=== PATIENT | female | born 1985 | race Caucasian/White ===

== ENCOUNTER 2018-07-06 00:35 | Inpatient (IN) | payer OTHER ==
[2018-07-06] MEDS ORDERED: AMPICILLIN - 2 GM in SODIUM CHLORIDE 100 ML IVPB SCH (01:15)
[2018-07-06] MEDS ORDERED: AMPICILLIN SODIUM 2 GM VIAL ONE (01:19)
[2018-07-06] MEDS ORDERED: DEXTROSE 5%-LACTATED RINGERS 1,000 ML IV SCH ×2 (01:30→07:45)
[2018-07-06 01:36] LABS: BASO % 0.3 % (0-2.0); EOS % 0.9 % (0-4.5); HEMATOCRIT 36.3 % (32.4-45.2); HEMOGLOBIN 12.6 GM/dL (10.7-15.3); LYMPH % 22.6 % (8-40); MCH 31.5 pg (25.7-33.7); MCHC 34.6 g/dl (32.0-36.0); MEAN PLT VOLUME 8.3 fl (7.5-11.1); MONO % 8.9 % (3.8-10.2); NEUT % 67.3 % (42.8-82.8); PLATELET COUNT 231 K/MM3 (134-434); RBC 3.99 M/mm3 (3.60-5.2); RDW 13.5 % (11.6-15.6); WHITE BLOOD COUNT 7.2 K/mm3 (4.0-10.0)
[2018-07-06] MEDS ORDERED: AMPICILLIN - 2 GM in SODIUM CHLORIDE 100 ML IVPB ONE (01:43)
[2018-07-06 01:52] VITALS: BMI 32.7
[2018-07-06 01:58] LABS: INR 0.95 (0.83-1.09); PROTHROMBIN TIME (PATIENT) 11.2 SEC (9.7-13.0)
[2018-07-06 02:00] LABS: ANION GAP 10 MMOL/L (8-16); BLOOD UREA NITROGEN 8 mg/dL (7-18); CALCIUM 8.4 mg/dL (8.5-10.1); CHLORIDE 108 mmol/L (98-107); CO2 19 mmol/L (21-32); CREATININE 0.5 mg/dL (0.55-1.3); GLUCOSE,RANDOM 100 mg/dL (74-106); POTASSIUM 3.6 mmol/L (3.5-5.1); SODIUM 137 mmol/L (136-145)
[2018-07-06] MEDS ORDERED: PROMETHAZINE HCL 25 MG/1 ML VIAL ONE (03:46)
[2018-07-06] MEDS ORDERED: BUTORPHANOL TARTRATE 2 MG/ML VIAL ONE (03:46)
[2018-07-06] MEDS ORDERED: PROMETHAZINE HCL 25 MG/1 ML VIAL IVPB ONE (04:00)
[2018-07-06] MEDS ORDERED: BUTORPHANOL TARTRATE 2 MG/ML VIAL IVPB ONE (04:00)
[2018-07-06] MEDS ORDERED: AMPICILLIN SODIUM 1 GM VIAL ONE ×5 (05:12→21:29)
[2018-07-06] MEDS: AMPICILLIN - 1 GM in SODIUM CHLORIDE 100 ML IVPB SCH ×5 (05:17→21:30)
--- NOTE | 2018-07-06 07:51 | HP ---
Past Medical History - Admission Chief Complaint: Rupture of membrane History of Present Illness: 33 yo , @ 41 weeks gestation, EDC 06/29/18, presents c/o rupture of membrane. Upon admission there was evidence of gross pooling. History Source: Patient Limitations to Obtaining History: No Limitations - Past Medical History ...: 1 ...Para: 0 ...Term: 0 ...: 0 ...Spon : 0 ...Induced : 0 ...Multiple Gestation: 0 ...LMP: 09/21/17 ... Weeks Gestation by Dates: 41.1 ...EDC by Dates: 06/28/18 ...EDC by Sono: 06/29/18 - Past Surgical History Past Surgical History: Yes: None Hx Myomectomy: No Hx Transabdominal Cerclage: No - Smoking History Smoking history: Never smoked - Alcohol/Substance Use Hx Alcohol Use: No - Social History History of Recent Travel: No Home Medications - Allergies Allergies/Adverse Reactions: Allergies Allergy/AdvReac Type Severity Reaction Status Date / Time No Known Allergies Allergy Verified 06/30/18 18:31 - Home Medications Home Medications: Ambulatory Orders Prenat 115/Iron Fum/Folic/Dss [ 19 Tablet] 1 tab PO DAILY 06/30/18 Family Disease History - Family Disease History Family History: Unremarkable Review of Systems - Review of Systems Constitutional: reports: No Symptoms Eyes: reports: No Symptoms HENT: reports: No Symptoms Neck: reports: No Symptoms Cardiovascular: reports: No Symptoms Respiratory: reports: No Symptoms Gastrointestinal: reports: No Symptoms Genitourinary: reports: Pain Breasts: reports: No Symptoms Reported Musculoskeletal: reports: No Symptoms Integumentary: reports: No Symptoms Neurological: reports: No Symptoms Endocrine: reports: No Symptoms Hematology/Lymphatic: reports: No Symptoms Psychiatric: reports: No Symptoms Pain Intensity: 3 Physical Exam - Maternity Vital Signs: Vital Signs Temperature 98.5 F 07/06/18 07:00 Pulse Rate 62 07/06/18 07:00 Respiratory Rate 20 07/06/18 07:00 Blood Pressure 129/69 07/06/18 07:00 O2 Sat by Pulse Oximetry (%) Constitutional: Yes: Well Nourished Eyes: Yes: Conjunctiva Clear HENT: Yes: Atraumatic Neck: Yes: Supple Cardiovascular: Yes: Regular Rate and Rhythm Lungs: Clear to auscultation - Abdominal Exam/OB Number of Fetuses: Single Presentation: Vertex - Vaginal Exam/OB Vaginal Bleediing: No Dilatation (cm): 1-2 Amniotic Membrane Status: Ruptured Amniotic Fluid: Yes: Clear Station: -2 - Physical Exam Musculoskeletal: Yes: WNL ...Motor Strength: WNL Psychiatric: Yes: Alert, Oriented - Labs Lab Results: CBC, BMP 07/06/18 01:20 07/06/18 00:56 Problem List - Problems (1) Spontaneous rupture of amniotic membranes Code(s): VGM7580 - Assessment/Plan SROM @ 41 weeks gestation Admit to L&D Analgesia as needed Anticipate
[2018-07-06] MEDS ORDERED: OXYTOCIN 30 UNITS in 0.9% NS 30 UNIT/500 ML INFUS.BAG IVPB SCH (08:15)
[2018-07-06] MEDS ORDERED: FENTANYL/BUPIVACAINE/NS/PF - PCEA - 50 ML DISP.SYRIN EP ONE (11:46)
[2018-07-06] MEDS ORDERED: ELECTROLYTE-148 SOLN 1,000 ML IV SCH (12:00)
--- NOTE | 2018-07-06 13:32 | PN ---
Ante-Partal Exam - Subjective Subjective: PT comfortable after anesthesia placed spinal. Vital Signs: Vital Signs Temperature 98.5 F 07/06/18 12:00 Pulse Rate 57 L 07/06/18 12:50 Respiratory Rate 20 07/06/18 12:50 Blood Pressure 95/50 L 07/06/18 12:50 O2 Sat by Pulse Oximetry (%) Bleeding: Yes Bleeding Description: Mild Headache: No Visual changes: No Right upper quadrant pain: No - Contractions Contractions: Yes Regularity: Regular Intensity: Mod/Strong - Exam during Labor Variability: Moderate Category: I Monitor Accelerations: Present Monitor Decelerations: None Exam: Vaginal Dilatation (cm): 6 Effacement (%): 90 Amniotic Membrane Status: Ruptured Station: 0 - Intrapartum Hemorrhage Risk Medium Risk Factors: None High Risk Factors: None Risk Score: 0 Risk Level: Low Risk - Assessment/Plan Assessment/Plan: Continue pitocin
[2018-07-06] MEDS ORDERED: BUPIVACAINE HCL/PF 0.25% (2.5MG/ML) 10 ML VIAL ONE (15:34)
[2018-07-06] MEDS ORDERED: LIDOCAINE HCL 1% PRESERVATIVE FREE - 30ML VIAL ONE (20:08)
[2018-07-06] MEDS ORDERED: OXYTOCIN 20 UNITS in 0.9% NS 20 UNIT/1,000 ML INFUS.BAG IV ONE (20:08)
--- NOTE | 2018-07-06 20:49 | PN ---
Ante-Partal Exam - Subjective Subjective: Continue pitocin anticipate Vital Signs: Vital Signs Temperature 99.6 F 07/06/18 20:00 Pulse Rate 68 07/06/18 20:00 Respiratory Rate 18 07/06/18 20:00 Blood Pressure 127/76 07/06/18 20:00 O2 Sat by Pulse Oximetry (%)
--- NOTE | 2018-07-07 00:40 | PN ---
Ante-Partal Exam - Subjective Subjective: PT feeling pressure and contractions Vital Signs: Vital Signs Temperature 98.5 F 07/06/18 23:00 Pulse Rate 56 L 07/06/18 23:00 Respiratory Rate 18 07/06/18 23:00 Blood Pressure 129/71 07/06/18 23:00 O2 Sat by Pulse Oximetry (%) Bleeding: Yes Bleeding Description: Mild Headache: No Visual changes: No Right upper quadrant pain: No Pain (scale 1-10): 8 - Contractions Contractions: Yes Regularity: Regular Intensity: Strong - Exam during Labor Heart Rate: 150 Variability: Moderate Category: II Monitor Accelerations: Present Monitor Decelerations: Variable (nonrecurrent) Exam: Vaginal Dilatation (cm): 8.5 Effacement (%): 90 Amniotic Membrane Status: Ruptured Presentation: Vertex Station: 0 - Intrapartum Hemorrhage Risk Medium Risk Factors: None High Risk Factors: None Risk Score: 0 Risk Level: Low Risk - Assessment/Plan Assessment/Plan: 33 y/o with SIUP at 41 weeks, PROM, labor induction FHTS overall cat 1, occasional variable decelerations/nonrecurrent will continue to monitor continue active management
[2018-07-07] MEDS ORDERED: AMPICILLIN SODIUM 1 GM VIAL ONE (01:18)
[2018-07-07] MEDS: AMPICILLIN - 1 GM in SODIUM CHLORIDE 100 ML IVPB SCH ×2 (01:20→05:54)
[2018-07-07] MEDS ORDERED: BISACODYL 10 MG SUPP.RECT RC PRN (04:42)
[2018-07-07] MEDS ORDERED: WITCH HAZEL 50% (TUCKS) 40 PAD/JAR PAD TP PRN (04:42)
[2018-07-07] MEDS ORDERED: BENZOCAINE 28 GM HEMORRHOIDAL OINTMENT TP PRN (04:42)
[2018-07-07] MEDS ORDERED: BENZOCAINE 20% 57 GM BOTTLE TP PRN (04:42)
[2018-07-07] MEDS ORDERED: METHYLERGONOVINE MALEATE 0.2 MG/1 ML AMP IM PRN (04:42)
--- NOTE | 2018-07-07 04:42 | PN ---
Delivery - Delivery Vaginal Delivery: No Problems Type of Anesthesia: Epidural (intrathecal placement of epidural, bolused throughout the day) Episiotomy/Laceration: 1st degree (and right vaginal sidewall) EBL (cc): 300 Delivery, Single - Stages of Labor Date of Delivery: 07/07/18 Time of Delivery: 04:07 Date Placenta Delivered: 07/07/18 Time Placenta Delivered: 04:15 Placenta: Yes: Spontaneous - Condition of Infant Housing Management Representative/Cash Applications Clerk Present: No Infant Gender: Male Position: Right, OA - 5 Minutes Total Score: 9 1 Minute Total Score: 8 - [place] Feeding Plan Initial Plan: Exclusive throughout hospitalization Remarks - Remarks Remarks: Uncomplicated of baby boy from DHIRAJ position across 1st degree laceration loose nuchal noted upon delivery meconium noted after delivery of baby head anterior shoulder (left) delivered with ease along with remainder of cord clamped and cut 1st degree repaired with 2-0 chromic right vaginal sidewall laceration repaired with 3-0 vicryl suture excellent hemostasis and cosmetic result sponge and needle count correct mom stable baby to well baby nursery
[2018-07-07] MEDS ORDERED: OXYTOCIN 20 UNITS in 0.9% NS 20 UNIT/1,000 ML INFUS.BAG IV SCH (04:45)
[2018-07-07] MEDS ORDERED: ACETAMINOPHEN 325 MG TABLET (FP) ONE (04:48)
[2018-07-07] MEDS ORDERED: IBUPROFEN 600 MG TABLET (FP) PO ONE (04:48)
[2018-07-07] MEDS: IBUPROFEN 600 MG TABLET (FP) PO PRN ×3 (04:50→16:15)
[2018-07-07] MEDS: ACETAMINOPHEN 325 MG TABLET (FP) PO PRN ×3 (04:50→16:17)
[2018-07-07] MEDS: FERROUS SO4 325 MG TABLET (FP) PO SCH ×3 (07:32→16:58)
[2018-07-07] MEDS: PRENATAL VITAMINS W/ FOLIC ACID TABLET (FP) PO SCH (10:46)
--- NOTE | 2018-07-07 12:16 | PN ---
Progress Note (short form) - Note Progress Note: Anesthesiologist note Called to evaluate the patient regarding back pain. S/P vaginal delivery at 4:00 am. Pat had unintentional intra thecal catheter, while attempted epidural placement. Catheter was kept in place and delivered boluses intermittently. Today patient c/o backache from lumbar up to the neck, specially when she tries to turn her head to the left side. Also tingling at both wrists and ankles. No headache. No N/V. No blurred vision. Have been ambulating today without any problems. PE: Sitting in the bed. CN grossly intact. Dysesthesia at bilat ankles and wrists. Strength LE and UE bilat 5/5 . Pain down on her back, Cervical to lumbar spine, on neck flexion. L4-5 TTP, at catheter insertion site, no erythema or swelling. Right side posterior shoulder TTP. VSS, afebrile. A/P: Possible dural irritation causing the pain down her back on neck flexion. No neurologic deficit related to spinal is observed. The wrist and ankle tingling could be related to swelling and also position during labor. Right shoulder pain seems to be of muscular origin. Reassuring the patient. Should observe for any sign of infection at the catheter insertion site. Follow any worsening of symptoms. Will follow.
[2018-07-07] MEDS: SENNOSIDES/DOCUSATE COMBO (SENNA PLUS) TABLET (UD) PO PRN (22:51)
[2018-07-08] MEDS: ACETAMINOPHEN 325 MG TABLET (FP) PO PRN ×2 (02:25→08:10)
[2018-07-08] MEDS: IBUPROFEN 600 MG TABLET (FP) PO PRN ×2 (02:25→08:11)
--- NOTE | 2018-07-08 07:08 | PN ---
Post Progress Note - Subjective Subjective: Pt seen/examined and doing well. Denies HARPER, no back pain. VB/lochia rubra stable and decreasing. Tolerating diet, ambulating, voiding, passing flatus. Pain controlled. Type of Delivery: Vital Signs: Vital Signs Temperature 98.3 F 07/07/18 21:59 Pulse Rate 76 07/07/18 21:59 Respiratory Rate 18 07/07/18 21:59 Blood Pressure 113/69 07/07/18 21:59 O2 Sat by Pulse Oximetry (%) 98 07/07/18 06:15 Uterus: Yes: Fundus Firm Abdomen/GI: Yes: Abdomen soft Lochia: Yes: Rubra Extremities: No: Edema Perineum: Yes: Laceration (in tact) Activity: Ambulating - Labs Labs: CBC WBC 7.2 K/mm3 (4.0-10.0) 07/06/18 01:20 RBC 3.99 M/mm3 (3.60-5.2) 07/06/18 01:20 Hgb 12.6 GM/dL (10.7-15.3) 07/06/18 01:20 Hct 36.3 % (32.4-45.2) 07/06/18 01:20 MCV 91.0 fl (80-96) 07/06/18 01:20 MCH 31.5 pg (25.7-33.7) 07/06/18 01:20 MCHC 34.6 g/dl (32.0-36.0) 07/06/18 01:20 RDW 13.5 % (11.6-15.6) 07/06/18 01:20 Plt Count 231 K/MM3 (134-434) 07/06/18 01:20 MPV 8.3 fl (7.5-11.1) 07/06/18 01:20 Absolute Neuts (auto) 4.8 K/mm3 (1.5-8.0) 07/06/18 01:20 Neutrophils % 67.3 % (42.8-82.8) 07/06/18 01:20 Lymphocytes % 22.6 % (8-40) 07/06/18 01:20 Monocytes % 8.9 % (3.8-10.2) 07/06/18 01:20 Eosinophils % 0.9 % (0-4.5) 07/06/18 01:20 Basophils % 0.3 % (0-2.0) 07/06/18 01:20 Nucleated RBC % 0 % (0-0) 07/06/18 01:20 Problem List - Problems (1) Vaginal delivery Code(s): O80 - ENCOUNTER FOR FULL-TERM UNCOMPLICATED DELIVERY Assessment/Plan 33 y/o PPD#1 s/p normal Regular diet PO pain meds await CBC routine care
--- NOTE | 2018-07-08 08:06 | DS ---
Physical Exam-KARATE INSTRUCTOR Vital Signs: Vital Signs Temperature 98.3 F 07/07/18 21:59 Pulse Rate 76 07/07/18 21:59 Respiratory Rate 18 07/07/18 21:59 Blood Pressure 113/69 07/07/18 21:59 O2 Sat by Pulse Oximetry (%) 98 07/07/18 06:15 Constitutional: Yes: Well Nourished, No Distress, Calm Eyes: Yes: Conjunctiva Clear HENT: Yes: Atraumatic Neck: Yes: Supple, Trachea Midline Cardiovascular: Yes: Regular Rate and Rhythm Respiratory: Yes: CTA Bilaterally Gastrointestinal: Yes: Normal Bowel Sounds, Soft ....Post : Yes: Uterus firm, Uterus non-tender Neurological: Yes: Alert, Oriented Psychiatric: Yes: Alert, Oriented Labs: CBC, BMP 07/06/18 01:20 07/06/18 00:56 Delivery - Delivery Vaginal Delivery: No Problems Type of Anesthesia: Epidural, Spinal Episiotomy/Laceration: 1st degree EBL (cc): 300 Delivery, Single - Stages of Labor Date 1st Stage Initiatied: 07/05/18 Time 1st Stage Initiated: 04:00 Date 2nd Stage Initiated: 07/07/18 Time 2nd Stage Initiated: 03:15 Date of Delivery: 07/07/18 Time of Delivery: 04:07 Time Placenta Delivered: 04:15 Placenta: Yes: Spontaneous - Condition of Vmware Consultant/Rail Car Driver Present: [place]: Chemo [place] Gender: Male Weight: 7 lb Position: Right, OA Total Hours ROM (Hrs/Mins): 55hr/15mins - 5 Minutes Total Score: 9 1 Minute Total Score: 8 - [place] Feeding Plan Initial Plan: Exclusive throughout hospitalization Discharge Summary Reason For Visit: LABOR Current Active Problems Spontaneous rupture of amniotic membranes (Acute) Vaginal delivery (Acute) Vaginal delivery (Acute) Procedures: Principal: Normal Hospital Course: Pt admitted in labor on 07/06/17, underwent uncomplicated on cigarette machine filler . Pt had post recovery complicated by spinal headache which required a blood patch by anesthesia in 07/08. Procedure went well and pt was discharged home on post day 2. Condition: Good - Instructions Diet, Activity, Other Instructions: Physical activity Resume your normal everyday activity as tolerated no heavy lifting or exercise until seen by your surgeon. You may walk unlimited amounts and climb stairs. You may resume driving the car when you feel safe and comfortable behind the wheel. No sexual activity as instructed for 6 weeks. Diet There are no dietary restrictions. Eat healthy, high-fiber foods. Drink 6 to 8 glasses of liquid each day. This will assist in keeping your bowels regular. Pain management You may take Tylenol or Ibuprofen (for example, Motrin, Advil etc.) as needed for pain. Call MD for any of the following: Severe pain not relieved by medication Fever of 101 or higher Excessive bleeding or drainage on dressing Inability to urinate Referrals: Radha Polanco DO [Staff Physician] - 1 Month (6 weeks) Disposition: HOME - Home Medications Comprehensive Discharge Medication List: Ambulatory Orders Prenat 115/Iron Fum/Folic/Dss [ 19 Tablet] 1 tab PO DAILY 06/30/18
[2018-07-08] MEDS: FERROUS SO4 325 MG TABLET (FP) PO SCH ×3 (08:12→18:03)
[2018-07-08 08:38] LABS: BASO % 0.4 % (0-2.0); EOS % 1.2 % (0-4.5); HEMATOCRIT 29.3 % (32.4-45.2); HEMOGLOBIN 10.1 GM/dL (10.7-15.3); LYMPH % 15.5 % (8-40); MCH 31.5 pg (25.7-33.7); MCHC 34.4 g/dl (32.0-36.0); MEAN CELL VOLUME 91.5 fl (80-96); MONO % 6.3 % (3.8-10.2); NEUT % 76.6 % (42.8-82.8); PLATELET COUNT 193 K/MM3 (134-434); WHITE BLOOD COUNT 12.9 K/mm3 (4.0-10.0)
--- NOTE | 2018-07-08 09:27 | PN ---
Progress Note (short form) - Note Progress Note: Anesthesia follow up S/P vaginal delivery, POD#2. The Back ache improved. Slight neck pain and occipital headache, 3-4/10. Helped by Motrin and Tylenol. No more tingling and numbness in wrists and ankles. Right shoulder pain improved. Ambulating. Tolerating po. VSS. Catheter insertion site clear, not TTP as yesterday. Right cervical paraspinal around C7 TTP and on neck flexion. A/P: Improved symptoms and pain. No neurologic deficits. Continue Motrin and Tylenol for the musculoskeletal pain. Reassuring. Will follow up if any worsening or new symptoms.
[2018-07-08] MEDS: PRENATAL VITAMINS W/ FOLIC ACID TABLET (FP) PO SCH (10:03)
--- NOTE | 2018-07-08 13:14 | PN ---
Progress Note (short form) - Note Progress Note: Anesthesia Called to evaluate post dural puncture headache. Pt c/o headache in occipital region improved with lying down but worse sitting up. Headache is consistent with the Post dural puncture headache. Other options including medication offered. pt consents to the epidural blood patch. In sterile fashion pt sat up L3-4 cleaned with betadine 3 times Local lidocaine injected 17 Tuohy needle introduced x 1 Epidural space identified with MICHELLE technique 20cc blood obtained by a nurse in sterile fashion from left AC Blood injected to the epidural space without resistence. Vital signs checked before and after. 134/94 71 99% Pt tolerated procedure well. Michael Blackwell MD
[2018-07-08] MEDS: SENNOSIDES/DOCUSATE COMBO (SENNA PLUS) TABLET (UD) PO PRN (21:05)
[2018-07-08] MEDS ORDERED: SENNOSIDES/DOCUSATE COMBO (SENNA PLUS) TABLET (UD) PO PRN (22:00)
[2018-07-09] MEDS: FERROUS SO4 325 MG TABLET (FP) PO SCH ×2 (08:00→12:02)
[2018-07-09 08:25] VITALS: BP 118/69; PULSE 73; TEMP 98.3
[2018-07-09] MEDS: PRENATAL VITAMINS W/ FOLIC ACID TABLET (FP) PO SCH (09:32)
--- NOTE | 2018-07-13 15:51 | PATH ---
Surgical Pathology Report Patient Name: TOYIN AGUILAR Med. Rec. #: [id number] /Age/Gender: 1985 (Age: 33) / F Account: [id number] [facility] OBS/SENIOR PAYROLL MANAGER Taken: 07/07/2018 Received: 07/09/2018 Reported: 07/13/2018 Physicians: Luis Brown M.D. Specimen(s) Received PLACENTA Clinical History , 41.1 weeks Final Diagnosis PLACENTA: THIRD TRIMESTER PLACENTA WITH PERIVILLOUS FIBRIN DEPOSITION, EDEMA OF THE SOFT TISSUE PLANE BETWEEN THE AMNION AND CHORION, AND PIGMENTED MACROPHAGES IN THE MEMBRANES. SEE NOTE. TRIVASCULAR CORD. Note: Findings are suggestive of meconium. Clinical correlation is recommended. Electronically Signed Iker Encinas M.D. Gross Description The specimen is received fresh labeled placenta and is a 425 gram, 18.0 x 15.5 x 2.8 cm. placenta with attached membranes and umbilical cord. The attached membranes are pearson green, meconium stained, translucent with focal opacities and insert marginally. The umbilical cord measures 47 cm. in length and averages 1.3 cm. in diameter. The cord inserts centrally. No true knots or strictures are identified. Cut surface of the umbilical cord reveals 3 vessels. The surface is cardenas green, meconium stained with minimal fibrin deposition and appropriate caliber vessels. The maternal surface is red-brown and intact. Sectioning reveals red-brown, spongy parenchyma. No lesions are identified. Manager [place] sections are submitted in three cassettes as follows: 1- membrane rolls and umbilical cord; 2-3- full thickness sections of placenta. /07/10/2018 [facility]07/10/2018
== END 2018-07-09 13:00 | disposition home or self-care (01) | DRG 560 ==
LOC: JLDR 00:35 → J3W 07-07 07:12
PROVIDERS: ADMIT Obstetrics & Gynecology; ATTEND Obstetrics & Gynecology
PROC: 0HQ9XZZ Repair Perineum Skin, External Approach (ICD-10-PCS; principal; 2018-07-07)
PROC: 10E0XZZ Delivery of Products of Conception, External Approach (ICD-10-PCS; 2018-07-07)
PROC: 3E0R3GC Introduction of Other Therapeutic Substance into Spinal Canal, Percutaneous Approach (ICD-10-PCS; 2018-07-08)
DX: O48.0 Post-term pregnancy (principal); O77.0 Labor and delivery complicated by meconium in amniotic fluid; O70.0 First degree perineal laceration during delivery; O74.5 Spinal and epidural anesthesia-induced headache during labor and delivery; M25.511 Pain in right shoulder; Z3A.40 40 weeks gestation of pregnancy; Z37.0 Single live birth
CPT/HCPCS: 36415; 59409; 80048; 85025; 85610; 85730; 86593; 86850; 86900; 86901; 87389; 88307-TC

== ENCOUNTER 2018-07-10 10:07 | Emergency (ER) | payer OTHER ==
[2018-07-10 10:12] VITALS: BMI 31.1
[2018-07-10] MEDS ORDERED: ACETAMINOPHEN 1000 MG/100 ML VIAL (NON FORMULARY) IVPB ONE (10:53)
[2018-07-10] MEDS ORDERED: SODIUM CHLORIDE 0.9% 1000 ML INFUS.BAG IV ONE (10:53)
[2018-07-10] MEDS ORDERED: CAFFEINE CITRATE 60 MG/3 ML VIAL IVPUSH ONE (10:53)
--- NOTE | 2018-07-10 11:17 | PDOC ---
History of Present Illness - General Chief Complaint: Headache Stated Complaint: Headache Time Seen by Provider: 07/10/18 10:36 - History of Present Illness Initial Comments: 07/10/18 11:17 33 years old presents to the ED with postdural headache Patient status post childbirth an epidural on Monday was complaining of post dural headache, blood patch on Monday felt better yesterday was asymptomatic today woke up fine when she stood up at the exact same headache which was maximal when standing alleviated by rest 10 out of 10 but relieved with lying supine Denies fever denies visual changes denies chest pain shortness of breath nausea vomiting diarrhea Past History - Past Medical History Allergies/Adverse Reactions: Allergies Allergy/AdvReac Type Severity Reaction Status Date / Time No Known Allergies Allergy Verified 07/10/18 16:43 Home Medications: Ambulatory Orders Prenat 115/Iron Fum/Folic/Dss [ 19 Tablet] 1 tab PO DAILY 06/30/18 Ibuprofen [Motrin -] 600 mg PO QID PRN #28 tablet 07/09/18 Asthma: No Cancer: No Cardiac Disorders: No COPD: No Diabetes: No HTN: No Seizures: No Thyroid Disease: No - Immunization History Immunization Up to Date: Yes - Suicide/Smoking/Psychosocial Hx Smoking History: Never smoked Hx Alcohol Use: No Drug/Substance Use Hx: No Hx Substance Use Treatment: No Review of Systems - Review of Systems Comments:: 07/10/18 11:17 ROS: A complete review of 10 out of 10 review of systems is taken and is negative apart from what is previously mentioned below and in the HPI. *Physical Exam - Vital Signs Last Vital Signs Temp Pulse Resp BP Pulse Ox 98.6 F 84 18 130/93 99 07/10/18 10:09 07/10/18 10:09 07/10/18 10:09 07/10/18 10:09 07/10/18 10:09 - Physical Exam Comments: 07/10/18 11:17 Vitals: Triage Vital signs reviewed General Appearance: no acute distress, well nourished well developed, Head: Atraumatic, Eyes: Pupils equal reactive round, extraocular movement intact Cardiac: Regular rate and rhythym, no murmurs, no rubs, no gallops, Lungs: Clear to auscultation bilateral, good air movement bilaterally, Abdomen: Soft, non distended, normal bowel sounds, non tender to palpation Extremities: Full range of motion to all extremities, no cyanosis, clubbing, or edema Skin: Warm and dry, no rashes or lesions, no rash, no petechiae Neuro: AOX3]; [Cranial Nerves 2-12 grossly intact], [Strength intact to all extremities], [Sensation intact to all extremities],[gait normal] Psych: [normal mood, normal affect] ED Treatment Course - LABORATORY CBC & Chemistry Diagram: 07/10/18 11:52 07/10/18 11:52 Medical Decision Making - Medical Decision Making 07/10/18 14:35 History examination consistent with postdural headache Status post fluids and IV Tylenol patient feels much better now able to annually comfortably around the emergency department On laboratory analysis to was a slight elevation in the patient's LFTs this was discussed with the patient's DIRECTOR VALIDATION Dr. Polanco Patient's repeat blood pressure is 146 systolic, urinalysis shows only trace protein 13 but moderate blood given her recent delivery these findings were discussed with patient's DIRECTOR VALIDATION Given a small concern for preeclampsia patient will be sent to labor and delivery for continued evaluation and further management. *DC/Admit/Observation/Transfer Diagnosis at time of Disposition: Headache Qualifiers: Headache type: unspecified Headache chronicity pattern: unspecified pattern Intractability: not intractable Qualified Code(s): R51 - Headache - Discharge Dispostion Disposition: HOME Condition at time of disposition: Stable - Referrals Referrals: Radha Polanco DO [Staff Physician] - (DISCHARGE HOME; CALL OFFICE TOMORROW MORNING FOR FOLLOW UP APPOINTMENT FOR BLOOD PRESSURE CHECK; IF HEADACHE, BLURRED VISION, EPIGASTRIC PAIN CALL MD SERVICE; ANY QUESTIONS/PROBLEMS CALL MD OR LABOR AREA [phone];) - Patient Instructions - Post Discharge Activity
[2018-07-10] MEDS ORDERED: ACETAMINOPHEN INJECTION 100 ML IVPB ONE (11:40)
[2018-07-10 12:00] LABS: BASO % 0.6 % (0-2.0); EOS % 1.6 % (0-4.5); HEMATOCRIT 34.6 % (32.4-45.2); HEMOGLOBIN 11.7 GM/dL (10.7-15.3); LYMPH % 13.8 % (8-40); MCH 30.9 pg (25.7-33.7); MCHC 33.9 g/dl (32.0-36.0); MEAN CELL VOLUME 91.1 fl (80-96); MEAN PLT VOLUME 7.2 fl (7.5-11.1); MONO % 5.4 % (3.8-10.2); NEUT % 78.6 % (42.8-82.8); PLATELET COUNT 287 K/MM3 (134-434); RDW 13.7 % (11.6-15.6); WHITE BLOOD COUNT 12.5 K/mm3 (4.0-10.0)
[2018-07-10 12:36] LABS: ALBUMIN 3.1 g/dl (3.4-5.0); ALK PHOS 274 U/L (45-117); ANION GAP 7 MMOL/L (8-16); BILIRUBIN,TOTAL 0.3 mg/dL (0.2-1); BLOOD UREA NITROGEN 6 mg/dL (7-18); CALCIUM 8.7 mg/dL (8.5-10.1); CHLORIDE 108 mmol/L (98-107); CO2 26 mmol/L (21-32); CREATININE 0.6 mg/dL (0.55-1.3); GLUCOSE,RANDOM 67 mg/dL (74-106); POTASSIUM 3.8 mmol/L (3.5-5.1); SGOT/AST 114 U/L (15-37); SGPT/ALT 92 U/L (13-61); SODIUM 141 mmol/L (136-145); TOT PROT 6.8 g/dl (6.4-8.2)
[2018-07-10 14:15] LABS: EPI CELLS 8.9 /HPF (0-5/HPF); PH,URINE 8.5 (5.0-8.0); URINE APPEARANCE CLEAR; URINE BACTERIA 9.1 /hpf (NEGATIVE); URINE BILIRUBIN NEGATIVE (NEGATIVE); URINE CASTS 12 /lpf (0-8); URINE COLOR ORANGE; URINE GLUCOSE (UA) NEGATIVE (NEGATIVE); URINE KETONE NEGATIVE (NEGATIVE); URINE LEUK ESTERASE 2+ (NEGATIVE); URINE NITRITE NEGATIVE (NEGATIVE); URINE PROTEIN TRACE (NEGATIVE); URINE RBC 259 /hpf (0-4); URINE UROBILINOGEN 0.2 mg/dL (0.2-1.0); URINE WBC 47 /hpf (0-5)
[2018-07-10 16:43] VITALS: TEMP 98.3
[2018-07-10 17:57] VITALS: BP 111/67; PULSE 74
--- NOTE | 2018-07-13 10:57 | EKG ---
Test Reason : Blood Pressure : / mmHG Vent. Rate : 070 BPM Atrial Rate : 070 BPM P-R Int : 120 ms QRS Dur : 080 ms QT Int : 380 ms P-R-T Axes : 042 083 043 degrees QTc Int : 410 ms NORMAL SINUS RHYTHM WITH SINUS ARRHYTHMIA NORMAL ECG NO PREVIOUS ECGS AVAILABLE Confirmed by JULI WITT MD ([id number]) on 07/13/2018 10:57:00 AM Referred By: Confirmed By:JULI WITT MD
== END 2018-07-10 18:10 | disposition home or self-care (01) ==
LOC: JER 10:07
PROC: 3E033NZ Introduction of Analgesics, Hypnotics, Sedatives into Peripheral Vein, Percutaneous Approach (ICD-10-PCS; principal; 2018-07-10)
DX: O90.89 Other complications of the puerperium, not elsewhere classified (principal); O89.4 Spinal and epidural anesthesia-induced headache during the puerperium
CPT/HCPCS: 36415; 80053; 81003; 85025; 93005; 93010; 96374; 99281-25; J0131; J7030

== ENCOUNTER 2020-03-29 23:40 | Emergency (ER) | payer OTHER ==
[2020-03-30 00:05] VITALS: BP 118/72; PULSE 70; TEMP 98.3; BMI 26.2
[2020-03-30] MEDS ORDERED: SODIUM CHLORIDE 500 ML IV STA (00:46)
[2020-03-30 01:38] LABS: BASO % 0.3 % (0-2.0); HEMATOCRIT 40.6 % (32.4-45.2); HEMOGLOBIN 13.8 GM/dL (10.7-15.3); LYMPH % 8.5 % (8-40); MCH 29.2 pg (25.7-33.7); MCHC 34.1 g/dl (32.0-36.0); MEAN CELL VOLUME 85.8 fl (80-96); MEAN PLT VOLUME 7.2 fl (7.5-11.1); MONO % 3.3 % (3.8-10.2); NEUT % 87.9 % (42.8-82.8); PLATELET COUNT 346 K/MM3 (134-434); RBC 4.74 M/mm3 (3.60-5.2); RDW 13.4 % (11.6-15.6); WHITE BLOOD COUNT 11.6 K/mm3 (4.0-10.0)
[2020-03-30] MEDS ORDERED: MECLIZINE HCL 25 MG TABLET (FP) PO ONE (01:40)
[2020-03-30] MEDS ORDERED: ONDANSETRON 4 MG/2 ML VIAL IVPUSH ONE (01:40)
[2020-03-30 01:56] LABS: POTASSIUM 3.9 mmol/L (3.5-5.1)
[2020-03-30 01:57] LABS: CALCIUM 8.7 mg/dL (8.5-10.1)
[2020-03-30 01:58] LABS: ALBUMIN 4.3 g/dl (3.4-5.0); BLOOD UREA NITROGEN 15.8 mg/dL (7-18)
[2020-03-30 02:01] LABS: CREATININE 0.8 mg/dL (0.55-1.3)
[2020-03-30 02:03] LABS: BILIRUBIN,TOTAL 0.3 mg/dL (0.2-1)
[2020-03-30 02:04] LABS: TOT PROT 8.1 g/dl (6.4-8.2)
[2020-03-30] MEDS ORDERED: MECLIZINE HCL 25 MG TABLET (FP) ONE (02:26)
[2020-03-30] MEDS ORDERED: ONDANSETRON 4 MG/2 ML VIAL ONE (02:26)
== END 2020-03-30 04:17 | disposition home or self-care (01) ==
LOC: JER 23:40
PROC: 3E033GC Introduction of Other Therapeutic Substance into Peripheral Vein, Percutaneous Approach (ICD-10-PCS; principal; 2020-03-29)
PROC: 3E0337Z Introduction of Electrolytic and Water Balance Substance into Peripheral Vein, Percutaneous Approach (ICD-10-PCS; 2020-03-29)
DX: H81.10 Benign paroxysmal vertigo, unspecified ear (principal)
CPT/HCPCS: 36415; 80053; 84443; 84703; 85025; 93005; 93010; 99284-25

== ENCOUNTER 2022-05-01 14:45 | Inpatient (IN) | payer OTHER ==
[2022-05-01 16:21] VITALS: BMI 34.0
[2022-05-01 16:30] LABS: INR 0.97 (0.83-1.09); PROTHROMBIN TIME (PATIENT) 11.3 SEC (9.7-13.0)
[2022-05-01 16:32] LABS: BASO % 0.4 % (0-2.0); EOS % 0.7 % (0-4.5); HEMATOCRIT 28.2 % (32.4-45.2); HEMOGLOBIN 9.3 GM/dL (10.7-15.3); LYMPH % 20.1 % (8-40); MCH 26.8 pg (25.7-33.7); MCHC 33.1 g/dl (32.0-36.0); MEAN CELL VOLUME 80.8 fl (80-96); MEAN PLT VOLUME 7.5 fl (7.5-11.1); MONO % 9.8 % (3.8-10.2); PLATELET COUNT 272 10^3/uL (134-434); RBC 3.49 M/mm3 (3.60-5.2); RDW 14.4 % (11.6-15.6); WHITE BLOOD COUNT 8.3 K/mm3 (4.0-10.0)
[2022-05-01] MEDS ORDERED: BUTORPHANOL TARTRATE 1 MG/ML VIAL IVPB PRN (16:32)
[2022-05-01] MEDS ORDERED: PROMETHAZINE HCL 25 MG/1 ML VIAL IVPB ONE (16:32)
[2022-05-01 16:33] LABS: ACTIVATED PTT 28.2 SECONDS (25.2-36.5)
[2022-05-01] MEDS ORDERED: AMPICILLIN - 2 GM in SODIUM CHLORIDE 100 ML IVPB ONE (16:34)
[2022-05-01] MEDS ORDERED: DINOPROSTONE 10 MG VAGINAL SUPPOSITORY VG ONE (16:36)
[2022-05-01 16:39] LABS: CALCIUM 8.7 mg/dL (8.5-10.1)
[2022-05-01 16:40] LABS: BLOOD UREA NITROGEN 10.2 mg/dL (7-18)
[2022-05-01 16:43] LABS: CREATININE 0.5 mg/dL (0.55-1.3)
[2022-05-02] MEDS ORDERED: OXYTOCIN 30 UNITS in 0.9% NS 30 UNIT/500 ML INFUS.BAG IVPB ONE (11:00)
[2022-05-02] MEDS: OXYTOCIN 30 UNITS in 0.9% NS 30 UNIT/500 ML INFUS.BAG IVPB SCH (11:40)
[2022-05-02] MEDS ORDERED: FENTANYL/BUPIVACAINE/NS/PF - PCEA - 50 ML DISP.SYRIN EP ONE (22:41)
[2022-05-02] MEDS ORDERED: NALOXONE HCL 0.4 MG/ML VIAL IVPUSH PRN (22:42)
[2022-05-02] MEDS ORDERED: FENTANYL CITRATE/PF 50 MCG/ML VIAL ONE (22:52)
[2022-05-02] MEDS: FENTANYL/BUPIVACAINE/NS/PF - PCEA - 50 ML DISP.SYRIN EP SCH (23:10)
[2022-05-03] MEDS ORDERED: FENTANYL/BUPIVACAINE/NS/PF - PCEA - 50 ML DISP.SYRIN EP ONE ×5 (03:53→20:05)
[2022-05-03] MEDS: AMPICILLIN - 1 GM in SODIUM CHLORIDE 100 ML IVPB SCH ×2 (07:24→07:25)
[2022-05-03] MEDS ORDERED: METHYLERGONOVINE MALEATE 0.2 MG/1 ML AMP IM PRN (08:04)
[2022-05-03] MEDS ORDERED: BISACODYL 10 MG SUPP.RECT RC PRN (08:04)
[2022-05-03] MEDS ORDERED: BENZOCAINE 20% 57 GM BOTTLE TP PRN (08:04)
[2022-05-03] MEDS ORDERED: ACETAMINOPHEN 325 MG TABLET (FP) PO PRN (08:04)
[2022-05-03] MEDS ORDERED: BENZOCAINE 28 GM HEMORRHOIDAL OINTMENT TP PRN (08:04)
[2022-05-03] MEDS ORDERED: oxyCODONE HCL 5 MG TABLET PO PRN (08:04)
[2022-05-03] MEDS ORDERED: WITCH HAZEL 50% (TUCKS) 40 PAD/JAR PAD TP PRN (08:04)
[2022-05-03] MEDS ORDERED: OXYTOCIN 20 UNITS in 0.9% NS 20 UNIT/1,000 ML INFUS.BAG IV SCH ×2 (08:15→22:00)
[2022-05-03] MEDS: FENTANYL/BUPIVACAINE/NS/PF - PCEA - 50 ML DISP.SYRIN EP SCH ×4 (08:38→20:10)
[2022-05-03] MEDS ORDERED: LIDOCAINE HCL 1% PRESERVATIVE FREE - 30ML VIAL ONE (11:05)
[2022-05-03] MEDS ORDERED: OXYTOCIN 20 UNITS in 0.9% NS 20 UNIT/1,000 ML INFUS.BAG IV ONE (11:05)
[2022-05-03] MEDS: PRENATAL VITAMINS W/ FOLIC ACID TABLET (FP) PO SCH (12:52)
[2022-05-03] MEDS: FERROUS SO4 325 MG TABLET (FP) PO SCH (12:52)
[2022-05-03] MEDS: ELECTROLYTE-148 SOLN 1,000 ML IV SCH ×2 (13:55→18:42)
[2022-05-03] MEDS ORDERED: BUPIVACAINE HCL/PF 0.25% (2.5MG/ML) 10 ML VIAL ONE (16:08)
[2022-05-03] MEDS ORDERED: FENTANYL CITRATE/PF 50 MCG/ML VIAL ONE ×2 (16:08→21:39)
[2022-05-03] MEDS ORDERED: OXYTOCIN 30 UNITS in 0.9% NS 30 UNIT/500 ML INFUS.BAG IVPB ONE ×2 (20:48→21:39)
[2022-05-03] MEDS: OXYTOCIN 30 UNITS in 0.9% NS 30 UNIT/500 ML INFUS.BAG IVPB SCH (20:50)
[2022-05-03] MEDS: CITRIC ACID/SODIUM CITRATE 30 ML UNIT-DOSE CUP PO ONE (21:20)
[2022-05-03] MEDS ORDERED: ONDANSETRON 4 MG/2 ML VIAL IVPUSH PRN (21:36)
[2022-05-03] MEDS ORDERED: LIDO 2%/EPI 1:200000 PRESRVFRE (20 ML SDVIAL) ONE (21:39)
[2022-05-03] MEDS ORDERED: ONDANSETRON 4 MG/2 ML VIAL ONE (21:42)
[2022-05-03] MEDS ORDERED: morphine SULFATE (PF) 1 MG/2 ML SYRINGE ONE (21:42)
[2022-05-03] MEDS ORDERED: ceFAZolin SODIUM 1 GM VIAL ONE (21:42)
[2022-05-03] MEDS ORDERED: DEXAMETHASONE SOD PHOSPHATE 4 MG/1 ML VIAL ONE (21:42)
[2022-05-03] MEDS ORDERED: ePHEDrine SULFATE 50 MG/1 ML AMPULE ONE (21:45)
[2022-05-03] MEDS ORDERED: KETOROLAC TROMETHAMINE 30 MG/1 ML VIAL ONE (22:23)
[2022-05-03 23:13] LABS: CORD BASE EXCESS -5.8 mmol/L (0-2); CORD HCO3 19.1 mmHg (20-29); CORD PCO2 36.3 mmHg (30-78); CORD pH 7.34 (7.14-7.44)
[2022-05-03 23:15] LABS: CORD BASE EXCESS -9.1 mmol/L (0-2); CORD HCO3 18.3 mmHg (20-29); CORD PCO2 44.5 mmHg (30-78); CORD pH 7.231 (7.14-7.44)
[2022-05-04] MEDS ORDERED: OXYTOCIN 20 UNITS in 0.9% NS 20 UNIT/1,000 ML INFUS.BAG IV ONE (00:57)
[2022-05-04] MEDS: ELECTROLYTE-148 SOLN 1,000 ML IV SCH (02:09)
[2022-05-04] MEDS: AMPICILLIN - 1 GM in SODIUM CHLORIDE 100 ML IVPB SCH (02:09)
[2022-05-04] MEDS: OXYTOCIN 30 UNITS in 0.9% NS 30 UNIT/500 ML INFUS.BAG IVPB SCH (02:11)
[2022-05-04] MEDS: FERROUS SO4 325 MG TABLET (FP) PO SCH ×3 (02:11→19:10)
[2022-05-04] MEDS: FENTANYL/BUPIVACAINE/NS/PF - PCEA - 50 ML DISP.SYRIN EP SCH (02:12)
[2022-05-04] MEDS: CITRIC ACID/SODIUM CITRATE 30 ML UNIT-DOSE CUP PO ONE (02:13)
[2022-05-04] MEDS: IBUPROFEN 800 MG/8 ML IJ IVPB PRN ×2 (06:07→22:19)
[2022-05-04] MEDS ORDERED: oxyCODONE HCL 5 MG TABLET PO PRN (08:04)
[2022-05-04 09:19] LABS: BASO % 0.2 % (0-2.0); HEMATOCRIT 25.6 % (32.4-45.2); HEMOGLOBIN 8.5 GM/dL (10.7-15.3); LYMPH % 5.9 % (8-40); MCH 26.7 pg (25.7-33.7); MCHC 33.3 g/dl (32.0-36.0); MEAN CELL VOLUME 80.2 fl (80-96); MEAN PLT VOLUME 8.1 fl (7.5-11.1); MONO % 4.4 % (3.8-10.2); NEUT % 89.5 % (42.8-82.8); PLATELET COUNT 245 10^3/uL (134-434); RBC 3.19 M/mm3 (3.60-5.2); RDW 14.3 % (11.6-15.6); WHITE BLOOD COUNT 17.8 K/mm3 (4.0-10.0)
[2022-05-04] MEDS: PRENATAL VITAMINS W/ FOLIC ACID TABLET (FP) PO SCH (09:55)
[2022-05-04] MEDS: IBUPROFEN 600 MG TABLET (FP) PO PRN ×2 (12:20→18:03)
[2022-05-04] MEDS: SIMETHICONE 80 MG TAB.CHEW (FP) PO PRN ×3 (12:20→22:19)
[2022-05-04] MEDS ORDERED: SENNOSIDES/DOCUSATE COMBO (SENNA PLUS) TABLET (UD) PO PRN (22:00)
[2022-05-05] MEDS: FERROUS SO4 325 MG TABLET (FP) PO SCH ×2 (08:12→17:53)
[2022-05-05] MEDS: SIMETHICONE 80 MG TAB.CHEW (FP) PO PRN ×2 (08:12→12:57)
[2022-05-05] MEDS: AMOX TR/POT CLAV 500MG/125MG TABLETS (FP) PO SCH ×2 (08:36→17:51)
[2022-05-05] MEDS: PRENATAL VITAMINS W/ FOLIC ACID TABLET (FP) PO SCH (10:49)
[2022-05-05] MEDS: IBUPROFEN 600 MG TABLET (FP) PO PRN ×2 (12:54→17:51)
[2022-05-05 21:04] VITALS: RESP 18
[2022-05-06] MEDS: SIMETHICONE 80 MG TAB.CHEW (FP) PO PRN (01:03)
[2022-05-06] MEDS: IBUPROFEN 600 MG TABLET (FP) PO PRN (01:03)
[2022-05-06] MEDS: oxyCODONE HCL 5 MG TABLET PO PRN ×2 (07:38→11:49)
[2022-05-06 07:49] LABS: BASO % 0.7 % (0-2.0); EOS % 1.5 % (0-4.5); HEMATOCRIT 25.1 % (32.4-45.2); HEMOGLOBIN 8.6 GM/dL (10.7-15.3); LYMPH % 20.2 % (8-40); MCH 27.4 pg (25.7-33.7); MCHC 34.4 g/dl (32.0-36.0); MEAN CELL VOLUME 79.6 fl (80-96); MEAN PLT VOLUME 7.4 fl (7.5-11.1); MONO % 6.8 % (3.8-10.2); NEUT % 70.8 % (42.8-82.8); PLATELET COUNT 295 10^3/uL (134-434); RBC 3.15 M/mm3 (3.60-5.2); RDW 14.8 % (11.6-15.6); WHITE BLOOD COUNT 8.9 K/mm3 (4.0-10.0)
[2022-05-06 09:32] VITALS: BP 125/69; PULSE 83; TEMP 98
[2022-05-06] MEDS: FERROUS SO4 325 MG TABLET (FP) PO SCH (10:15)
[2022-05-06] MEDS: PRENATAL VITAMINS W/ FOLIC ACID TABLET (FP) PO SCH (10:15)
[2022-05-06] MEDS: AMOX TR/POT CLAV 500MG/125MG TABLETS (FP) PO SCH (10:16)
== END 2022-05-06 12:20 | disposition home or self-care (01) | DRG 540 ==
LOC: JLDR 14:45 → J3W 05-04 01:05
PROVIDERS: ADMIT Obstetrics & Gynecology; ATTEND Obstetrics & Gynecology
PROC: 3E0P7VZ Introduction of Hormone into Female Reproductive, Via Natural or Artificial Opening (ICD-10-PCS; 2022-05-01)
PROC: 3E033VJ Introduction of Other Hormone into Peripheral Vein, Percutaneous Approach (ICD-10-PCS; 2022-05-01)
PROC: 10D00Z1 Extraction of Products of Conception, Low, Open Approach (ICD-10-PCS; principal; 2022-05-03)
DX: O41.03X0 Oligohydramnios, third trimester, not applicable or unspecified (principal); O62.0 Primary inadequate contractions; O99.214 Obesity complicating childbirth; E66.9 Obesity, unspecified; Z3A.39 39 weeks gestation of pregnancy; Z37.0 Single live birth
CPT/HCPCS: 36415; 36600; 80048; 82803; 85025; 85610; 85730; 86780; 86850; 86900; 86901; 88307-TC; C9803-CS; U0003; U0005

== ENCOUNTER 2022-12-13 14:58 | Emergency (ER) | payer OTHER ==
[2022-12-13 15:26] VITALS: BP 135/82; PULSE 103; RESP 22; TEMP 98.6; BMI 29.2
== END 2022-12-13 17:09 | disposition home or self-care (01) ==
LOC: JERFT 14:58 → JER 14:58 → JERFT 17:09
DX: M54.50 Low back pain, unspecified (principal); M79.604 Pain in right leg
CPT/HCPCS: 72100-TC-FY; 99283-25

== ENCOUNTER 2023-08-21 04:05 | Day surgery (SDC) | payer OTHER ==
[2023-08-14 10:54] VITALS: BMI 27.2
[2023-08-21] MEDS ORDERED: ceFAZolin SODIUM 1 GM VIAL ONE (06:15)
[2023-08-21] MEDS ORDERED: CEFAZOLIN SODIUM 2 GM in DEXTROSE 5%-WATER 100 ML IVPB ONE (07:00)
[2023-08-21] MEDS ORDERED: BUPIVACAINE HCL/PF 0.5% (5MG/ML) 10 ML VIAL ONE (07:09)
[2023-08-21] MEDS ORDERED: ROCURONIUM BROMIDE 50 MG/5 ML VIAL ONE ×2 (07:16→07:18)
[2023-08-21] MEDS ORDERED: PROPOFOL 20 ML ONE (07:16)
[2023-08-21] MEDS ORDERED: FENTANYL CITRATE/PF 50 MCG/ML VIAL ONE ×2 (07:17→08:48)
[2023-08-21] MEDS ORDERED: MIDAZOLAM HCL 2 MG/2 ML SINGLE DOSE VIAL ONE (07:17)
[2023-08-21] MEDS ORDERED: DEXAMETHASONE SOD PHOSPHATE 4 MG/1 ML VIAL ONE (08:36)
[2023-08-21] MEDS ORDERED: ONDANSETRON 4 MG/2 ML VIAL ONE ×2 (08:36→08:58)
[2023-08-21] MEDS ORDERED: GLYCOPYRROLATE 0.2 MG/1 ML VIAL ONE (08:42)
[2023-08-21] MEDS ORDERED: NEOSTIGMINE METHYLSULFATE 0.5 MG/1 ML - 10 ML MDV ONE (08:42)
[2023-08-21] MEDS: ONDANSETRON 4 MG/2 ML VIAL IVPUSH PRN (09:00)
[2023-08-21] MEDS ORDERED: oxyCODONE HCL 5 MG TABLET PO PRN (09:01)
[2023-08-21] MEDS ORDERED: LACTATED RINGERS SOLUTION 1,000 ML IV SCH (09:15)
[2023-08-21 10:17] VITALS: PULSE 52; RESP 20
[2023-08-21 12:22] VITALS: BP 112/68; TEMP 97.3
== END 2023-08-21 12:15 | disposition home or self-care (01) ==
LOC: JASU-SURG 04:05
PROVIDERS: ATTEND Obstetrics & Gynecology
PROC: 0UB24ZZ Excision of Bilateral Ovaries, Percutaneous Endoscopic Approach (ICD-10-PCS; 2023-08-21)
PROC: 0UT74ZZ Resection of Bilateral Fallopian Tubes, Percutaneous Endoscopic Approach (ICD-10-PCS; principal; 2023-08-21 08:28)
DX: Z30.2 Encounter for sterilization (principal); N83.202 Unspecified ovarian cyst, left side; N83.201 Unspecified ovarian cyst, right side
CPT/HCPCS: 81025; 88305-TC; 94760